=== PATIENT | female | born 1960 | race Caucasian/White ===

== ENCOUNTER 2017-11-23 13:50 | Emergency (ER) | payer MEDICARE ==
[~2017-11-23] VITALS: Ht 152.4 cm; Wt 50.8 kg
[~2017-11-23 13:50] MED LIST: AFRIN15 ML NS; ALBUTEROL PO; AZITHROMYCIN 2250 MG PO; BENTYL 10 MG CA10 M1 PO; BIAXIN 250MG T250 MG PO; CARAFATE 1 GM TA1 G1 PO; CITRATE OF MAG296 ML PO; CLEOCIN HCL150 MG PO; COMBIVENT INH; DIFLUCAN200 MG PO; DUONEB 2.5-0.5 M3 ML INH; FIBERCON625 M1 PO; FLONASE 0.05%50 MCG NASAL; HYDROCHLOROTH12.5 M1 PO; HYDROCODONE-AP1 EAC6 PO; IBUPROFEN 200200 M1 PO; IBUPROFEN 400400 M2 PO; LEVAQUIN 500 M500 M2 PO; LEVAQUIN 750 M750 MG PO; LEVOXYL88 MCG PO; LIDOCAINE 22 %/30 GM TOP; MEDROLDOSEPACK PO; MERREM1 GM IV; MIRALAX17 GM PO; MUCINEX TA600 MG/TA2 PO; NICOTINE TRANSD21 M1; NORCO 10-325 T1 EACH PO; NYSTATIN 1100000 U/M SW&SWALLOW; OMEPRAZOLE 20 M20 M1; OMEPRAZOLE 20 M20 M1 PO; OMEPRAZOLE20 M1 PO; PAXIL10 MG PO; PERCOCET 5-3251 EACH PO; PREDNISONE 10 M10 MG PO; PREDNISONE10 MG PO; PROAIR HFA8.5 GM INH; PROBIOTIC1 EAC1 PO; PROTONIX 20 MG20 MG PO; PROTONIX40 M1 PO; RANITIDINE 150150 MG PO; SINGULAIR 10 MG10 M1 PO; STERAPRED DS10 MG PO; STOOL SOFTENER100 MG PO; TOBRAMYCIN INH; TYLENOL325 MG PO; VALIUM10 MG; VALIUM10 MG PO; VALIUM5 MG PO; ZPAK PO; [UNRECOGNIZED DRUG - OTHER]
[2017-11-23] MEDS ORDERED: POLYOX WSR-3011 GM PO (13:58)
[2017-11-23] MEDS ORDERED: ZANTAC 150MG T150 MG PO (13:58)
[2017-11-23] MEDS ORDERED: CLEOCIN HCL150 MG PO (14:07)
[2017-11-23] MEDS ORDERED: PREDNISONE 20 M20 M1 PO (14:07)
[2017-11-23] MEDS ORDERED: HYCET 7.5 MG-3473 ML PO (14:07)
[2017-11-23 14:33] VITALS: BP 130/80
== END 2017-11-23 14:34 | disposition home or self-care (01) ==
LOC: M.ERS 13:50
DX: J40 Bronchitis, not specified as acute or chronic (principal); J44.9 Chronic obstructive pulmonary disease, unspecified; M19.90 Unspecified osteoarthritis, unspecified site; M81.0 Age-related osteoporosis without current pathological fracture; Z90.49 Acquired absence of other specified parts of digestive tract; Z87.891 Personal history of nicotine dependence; Z88.0 Allergy status to penicillin; Z88.5 Allergy status to narcotic agent; Z88.8 Allergy status to other drugs, medicaments and biological substances

== ENCOUNTER 2017-12-08 15:15 | Emergency (ER) | payer MEDICARE ==
[~2017-12-08] VITALS: Ht 154.9 cm; Wt 54.4 kg
[~2017-12-08 15:15] MED LIST changes: +HYCET 7.5 MG-3473 ML PO; +POLYOX WSR-3011 GM PO; +PREDNISONE 20 M20 M1 PO; +ZANTAC 150MG T150 MG PO
[2017-12-08 15:49] LABS: ABSOLUTE BASOPHILS 0.1 thou/uL (0.0-0.2); ABSOLUTE EOSINOPHILS 0.2 thou/uL (0.0-0.7); ABSOLUTE LYMPHOCYTES 2.2 thou/uL (0.8-5.3); ABSOLUTE MONOCYTES 0.6 thou/uL (0.0-1.2); ABSOLUTE NEUTROPHILS 8.8 thou/uL (1.6-8.1); BASOPHILS 0.9 %; EOSINOPHILS 1.4 %; HEMATOCRIT 39.6 % (37.0-47.0); LYMPHOCYTES 18.7 %; MCH 29.3 pg (26.0-34.0); MCHC 32.9 g/dL (28.0-37.0); MCV 89.2 fL (80.0-100.0); MONOCYTES 5.2 %; MPV 6.4 fl. (7.2-11.1); NUCLEATED RBCS 0 /100WBC; PLATELET COUNT* 275 thou/uL (150-400); POLYS 73.8 %; RBC 4.44 mil/uL (4.20-5.00); RDW-CV 14.2 % (10.5-14.5); WBC 11.9 thou/uL (4.0-11.0)
[2017-12-08 15:59] LABS: ANION GAP 8 mmol/L (7-16); BUN 12 mg/dL (7-18); CALCIUM 8.9 mg/dL (8.5-10.1); CHLORIDE 105 mmol/L (98-107); CO2 25 mmol/L (21-32); CREATININE 0.8 mg/dL (0.6-1.3); GLUCOSE 102 mg/dL (70-99); SODIUM 138 mmol/L (136-145)
[2017-12-08 16:00] LABS: PROTIME 9.6 Seconds (9.20-11.50)
[2017-12-08 16:17] LABS: ALBUMIN 3.3 g/dL (3.4-5.0); ALKALINE PHOSPHATASE 339 U/L (46-116); CK-MB MASS < 0.5 ng/mL (<0.5-3.6); LIPASE 345 U/L (73-393); MAGNESIUM 1.8 mg/dL (1.8-2.4); NT-PRO BRAIN NAT PEPTIDE 25 pg/mL (<300); SGOT 181 U/L (15-37); SGPT 123 U/L (30-65); TOTAL BILIRUBIN 0.4 mg/dL (<0.1-1.0); TOTAL PROTEIN 6.6 g/dL (6.4-8.2); TROPONIN-I LEVEL <0.06 ng/mL (<0.06)
[2017-12-08 17:08] VITALS: BP 147/81
--- NOTE | 2017-12-09 15:45 | EKG ---
[place] [address] ELECTROCARDIOGRAM REPORT Name: NAIMA FREGOSO Room: [facility]#: [id number] Admission: 12/08/17 Attend Phys: Discharge: 12/08/17 Date of : 56 Report #: [id number] THIS REPORT FOR: //name// [facility] ED Test Date: 2017-12-08 Test Time: 15:21:06 Pat Name: NAIMA FREGOSO Department: Room: Gender: F Skin Fitter: Damian ANTONIO : 1960 Requested By: Dl Puga Order Number: [id number] MD: Ash Huddleston Measurements Intervals [place] Rate: 101 P: 55 SC: 137 QRS: 44 QRSD: 97 T: -51 QT: 347 QTc: 450 Interpretive Statements Sinus tachycardia Abnormal R-wave progression, early transition Borderline T abnormalities, inferior leads Artifact in lead(s) I,II,III,aVR,aVL,aVF Compared to ECG 10/16/2017 16:09:51 T-wave abnormality now present Electronically Signed On 12-09-2017 15:45:17 MIXING PLANT OPERATOR by Ash Huddleston [email or web address] <ELECTRONICALLY SIGNED> By: Ash Huddleston MD, FACC 12/09/17 1545 1521 1521 Ash Huddleston MD, FAC /EPI
== END 2017-12-08 17:09 | disposition home or self-care (01) ==
LOC: M.ERS 15:15
PROVIDERS: Family Medicine
DX: R10.13 Epigastric pain (principal); J44.9 Chronic obstructive pulmonary disease, unspecified; M19.90 Unspecified osteoarthritis, unspecified site; E05.00 Thyrotoxicosis with diffuse goiter without thyrotoxic crisis or storm; Z87.891 Personal history of nicotine dependence; Z98.890 Other specified postprocedural states; Z88.8 Allergy status to other drugs, medicaments and biological substances; Z88.0 Allergy status to penicillin; Z88.1 Allergy status to other antibiotic agents

== ENCOUNTER 2018-01-17 11:39 | Emergency (ER) | payer MEDICARE ==
[~2018-01-17] VITALS: Ht 154.9 cm; Wt 51.3 kg
[2018-01-17] MEDS ORDERED: BONE PO (11:58)
[2018-01-17 13:39] LABS: ABSOLUTE BASOPHILS 0.1 thou/uL (0.0-0.2); ABSOLUTE EOSINOPHILS 0.1 thou/uL (0.0-0.7); ABSOLUTE LYMPHOCYTES 2.8 thou/uL (0.8-5.3); ABSOLUTE MONOCYTES 0.7 thou/uL (0.0-1.2); ABSOLUTE NEUTROPHILS 5.7 thou/uL (1.6-8.1); BASOPHILS 0.7 %; EOSINOPHILS 0.7 %; HEMATOCRIT 40.2 % (37.0-47.0); HEMOGLOBIN 13.1 gm/dL (12.0-15.0); LYMPHOCYTES 30.3 %; MCH 29.3 pg (26.0-34.0); MCHC 32.7 g/dL (28.0-37.0); MCV 89.6 fL (80.0-100.0); MONOCYTES 7.4 %; MPV 6.6 fl. (7.2-11.1); NUCLEATED RBCS 0 /100WBC; PLATELET COUNT* 282 thou/uL (150-400); POLYS 60.9 %; RBC 4.48 mil/uL (4.20-5.00); RDW-CV 13.9 % (10.5-14.5); WBC 9.4 thou/uL (4.0-11.0)
[2018-01-17 13:50] LABS: ANION GAP 5 mmol/L (7-16); BUN 8 mg/dL (7-18); CALCIUM 8.4 mg/dL (8.5-10.1); CHLORIDE 105 mmol/L (98-107); CO2 30 mmol/L (21-32); CREATININE 0.8 mg/dL (0.6-1.3); GLUCOSE 75 mg/dL (70-99); POTASSIUM 3.7 mmol/L (3.5-5.1); SODIUM 140 mmol/L (136-145)
[2018-01-17 13:58] LABS: INFLUENZA A ANTIGEN None Detected (None Detect); INFLUENZA B ANTIGEN None Detected (None Detect)
[2018-01-17 14:02] LABS: ALBUMIN 3.5 g/dL (3.4-5.0); ALKALINE PHOSPHATASE 94 U/L (46-116); NT-PRO BRAIN NAT PEPTIDE 196 pg/mL (<300); SGOT 13 U/L (15-37); SGPT 17 U/L (30-65); TOTAL BILIRUBIN 0.2 mg/dL (<0.1-1.0); TOTAL PROTEIN 6.6 g/dL (6.4-8.2); TROPONIN-I LEVEL <0.06 ng/mL (<0.06)
[2018-01-17] MEDS ORDERED: PREDNISONE 20 M20 M1 PO (15:02)
[2018-01-17] MEDS ORDERED: LEVAQUIN 500 M500 MG PO (15:02)
[2018-01-17 15:43] VITALS: BP 140/83
--- NOTE | 2018-01-17 17:09 | EKG ---
[place] [address] ELECTROCARDIOGRAM REPORT Name: NAIMA FREGOSO Room: [facility]#: [id number] Admission: 01/17/18 Attend Phys: Discharge: 01/17/18 Date of : 56 Report #: [id number] THIS REPORT FOR: //name// [facility] ED Test Date: 2018-01-17 Test Time: 13:35:36 Pat Name: NAIMA FREGOSO Department: Room: Gender: F Conveyor Tender: Damian DAVIDSON : 1960 Requested By: Sofía Bales Order Number: [id number] MD: Ash Huddleston Measurements Intervals [place] Rate: 70 P: 52 MD: 133 QRS: 14 QRSD: 92 T: 20 QT: 384 QTc: 415 Interpretive Statements Sinus rhythm Low voltage, precordial leads Compared to ECG 12/08/2017 15:21:06 Low QRS voltage now present Sinus tachycardia no longer present T-wave abnormality no longer present Electronically Signed On 01-17-2018 17:09:34 INSTRUCTOR BUS TROLLEY [employer]AXI by Ash Huddleston [email or web address] <ELECTRONICALLY SIGNED> By: Ash Huddleston MD, [facility] 01/17/18 1709 1335 1335 Ash Huddleston MD, [facility] /EPI
== END 2018-01-17 15:44 | disposition home or self-care (01) ==
LOC: M.ERS 11:39
PROVIDERS: Nurse Practitioner Family
DX: J18.9 Pneumonia, unspecified organism (principal); J44.9 Chronic obstructive pulmonary disease, unspecified; E05.00 Thyrotoxicosis with diffuse goiter without thyrotoxic crisis or storm; M81.0 Age-related osteoporosis without current pathological fracture; Z90.49 Acquired absence of other specified parts of digestive tract; Z88.8 Allergy status to other drugs, medicaments and biological substances; Z88.1 Allergy status to other antibiotic agents; Z88.0 Allergy status to penicillin; Z87.891 Personal history of nicotine dependence

== ENCOUNTER 2018-02-04 18:17 | Emergency (ER) | payer MEDICARE ==
[~2018-02-04] VITALS: Ht 152.4 cm; Wt 51.3 kg
[~2018-02-04 18:17] MED LIST changes: +BONE PO; +LEVAQUIN 500 M500 MG PO
[2018-02-04] MEDS ORDERED: FOSAMAX 70 MG T70 MG PO (18:31)
[2018-02-04 19:15] LABS: ABSOLUTE BASOPHILS 0.1 thou/uL (0.0-0.2); ABSOLUTE EOSINOPHILS 0.3 thou/uL (0.0-0.7); ABSOLUTE LYMPHOCYTES 2.3 thou/uL (0.8-5.3); ABSOLUTE MONOCYTES 0.4 thou/uL (0.0-1.2); ABSOLUTE NEUTROPHILS 3.9 thou/uL (1.6-8.1); EOSINOPHILS 4.4 %; HEMATOCRIT 37.3 % (37.0-47.0); HEMOGLOBIN 12.2 gm/dL (12.0-15.0); LYMPHOCYTES 33.2 %; MCHC 32.7 g/dL (28.0-37.0); MCV 88.7 fL (80.0-100.0); MONOCYTES 5.7 %; MPV 6.3 fl. (7.2-11.1); NUCLEATED RBCS 0 /100WBC; PLATELET COUNT* 233 thou/uL (150-400); POLYS 55.7 %; RBC 4.21 mil/uL (4.20-5.00); RDW-CV 13.6 % (10.5-14.5)
[2018-02-04 19:23] LABS: CALCIUM 8.2 mg/dL (8.5-10.1); CREATININE 0.8 mg/dL (0.6-1.3); POTASSIUM 3.8 mmol/L (3.5-5.1)
[2018-02-04 19:28] LABS: TOTAL BILIRUBIN 0.2 mg/dL (<0.1-1.0); TOTAL PROTEIN 6.1 g/dL (6.4-8.2)
[2018-02-04] MEDS ORDERED: PREDNISONE 20 M20 M1 PO (19:51)
[2018-02-04] MEDS ORDERED: TUSSIN MUC100 MG/5 M PO (19:52)
[2018-02-04 20:03] VITALS: BP 138/79
== END 2018-02-04 20:11 | disposition home or self-care (01) ==
LOC: M.ERS 18:17
PROVIDERS: Nurse Practitioner Family
DX: J06.9 Acute upper respiratory infection, unspecified (principal); J44.9 Chronic obstructive pulmonary disease, unspecified; M19.90 Unspecified osteoarthritis, unspecified site

== ENCOUNTER 2018-02-27 14:16 | Emergency (ER) | payer MEDICARE ==
[~2018-02-27] VITALS: Ht 154.9 cm; Wt 52.2 kg
[~2018-02-27 14:16] MED LIST changes: +FOSAMAX 70 MG T70 MG PO; +TUSSIN MUC100 MG/5 M PO
[2018-02-27] MEDS ORDERED: BREO ELLIPTA 11 EACH INH (14:27)
[2018-02-27 15:15] LABS: ABSOLUTE BASOPHILS 0.1 thou/uL (0.0-0.2); ABSOLUTE EOSINOPHILS 0.3 thou/uL (0.0-0.7); ABSOLUTE LYMPHOCYTES 1.8 thou/uL (0.8-5.3); ABSOLUTE MONOCYTES 0.5 thou/uL (0.0-1.2); BASOPHILS 1.3 %; HEMATOCRIT 38.2 % (37.0-47.0); HEMOGLOBIN 12.6 gm/dL (12.0-15.0); LYMPHOCYTES 27.4 %; MCH 28.6 pg (26.0-34.0); MCHC 33.1 g/dL (28.0-37.0); MCV 86.6 fL (80.0-100.0); MPV 6.3 fl. (7.2-11.1); NUCLEATED RBCS 0 /100WBC; PLATELET COUNT* 282 thou/uL (150-400); POLYS 59.3 %; RBC 4.41 mil/uL (4.20-5.00); RDW-CV 13.4 % (10.5-14.5); WBC 6.7 thou/uL (4.0-11.0)
[2018-02-27 15:23] LABS: ANION GAP 6 mmol/L (7-16); BUN 17 mg/dL (7-18); CALCIUM 9.4 mg/dL (8.5-10.1); CHLORIDE 105 mmol/L (98-107); CO2 29 mmol/L (21-32); CREATININE 0.8 mg/dL (0.6-1.3); GLUCOSE 108 mg/dL (70-99); POTASSIUM 4.6 mmol/L (3.5-5.1); SODIUM 140 mmol/L (136-145)
[2018-02-27 15:30] LABS: ALBUMIN 3.2 g/dL (3.4-5.0); ALKALINE PHOSPHATASE 98 U/L (46-116); SGOT 18 U/L (15-37); SGPT 19 U/L (30-65); TOTAL BILIRUBIN 0.2 mg/dL (<0.1-1.0); TOTAL PROTEIN 6.9 g/dL (6.4-8.2); TROPONIN-I LEVEL <0.06 ng/mL (<0.06)
[2018-02-27 17:10] VITALS: BP 125/74
--- NOTE | 2018-02-28 10:06 | EKG ---
[place] [address] ELECTROCARDIOGRAM REPORT Name: NAIMA FREGOSO Room: [facility]#: [id number] Admission: 02/27/18 Attend Phys: Discharge: 02/27/18 Date of : 56 Report #: [id number] THIS REPORT FOR: //name// [facility] ED Test Date: 2018-02-27 Test Time: 15:20:10 Pat Name: NAIMA FREGOSO Department: Room: Gender: F Shirt Line Operator: ANDRE : 1960 Requested By: Jayce Kee Order Number: [id number] MD: Juan Montano Measurements Intervals [place] Rate: 86 P: 53 IL: 138 QRS: 31 QRSD: 93 T: 41 QT: 358 QTc: 429 Interpretive Statements Sinus rhythm Compared to ECG 01/17/2018 13:35:36 No significant changes Electronically Signed On 02-28-2018 10:05:43 CDT by Juan Montano [email or web address] <ELECTRONICALLY SIGNED> By: Juan Montano MD, [facility] 02/28/18 1005 1520 1520 Juan Montano MD, FACC /EPI
== END 2018-02-27 17:10 | disposition home or self-care (01) ==
LOC: M.ERS 14:16
PROVIDERS: Emergency Medicine Emergency Medical Services
DX: H53.8 Other visual disturbances (principal); J44.9 Chronic obstructive pulmonary disease, unspecified; M19.90 Unspecified osteoarthritis, unspecified site; E05.00 Thyrotoxicosis with diffuse goiter without thyrotoxic crisis or storm; M81.0 Age-related osteoporosis without current pathological fracture; Z88.4 Allergy status to anesthetic agent; Z88.8 Allergy status to other drugs, medicaments and biological substances; Z88.0 Allergy status to penicillin; Z88.1 Allergy status to other antibiotic agents; Z87.891 Personal history of nicotine dependence

== ENCOUNTER 2018-04-25 18:12 | Emergency (ER) | payer MEDICARE ==
[~2018-04-25] VITALS: Ht 152.4 cm; Wt 47.6 kg
[~2018-04-25 18:12] MED LIST changes: +BREO ELLIPTA 11 EACH INH
[2018-04-25] MEDS ORDERED: EYE DROPS (18:23)
[2018-04-25 18:50] LABS: HEMATOCRIT 39.2 % (37.0-47.0); HEMOGLOBIN 13.1 gm/dL (12.0-15.0); MCH 28.7 pg (26.0-34.0); MCHC 33.4 g/dL (28.0-37.0); MPV 6.8 fl. (7.2-11.1); NUCLEATED RBCS 0 /100WBC; PLATELET COUNT* 246 thou/uL (150-400); RBC 4.56 mil/uL (4.20-5.00); RDW-CV 15.2 % (10.5-14.5); WBC 5.6 thou/uL (4.0-11.0)
[2018-04-25 18:58] LABS: CALCIUM 8.9 mg/dL (8.5-10.1); CREATININE 0.8 mg/dL (0.6-1.3); POTASSIUM 3.9 mmol/L (3.5-5.1)
[2018-04-25 19:02] LABS: ALBUMIN 3.5 g/dL (3.4-5.0); TOTAL BILIRUBIN 0.2 mg/dL (<0.1-1.0); TOTAL PROTEIN 6.6 g/dL (6.4-8.2)
[2018-04-25 19:08] LABS: ABSOLUTE LYMPHOCYTES 0.4 thou/uL (0.8-5.3); ABSOLUTE MONOCYTES 0.1 thou/uL (0.0-1.2); ABSOLUTE NEUTROPHILS 5.1 thou/uL (1.6-8.1); ATYPICAL LYMPHS 1 %; PLATELET ESTIMATE ADEQUATE
[2018-04-25] MEDS ORDERED: PREDNISONE50 MG PO (19:33)
[2018-04-25 19:45] VITALS: BP 136/77
--- NOTE | 2018-04-26 13:57 | EKG ---
[place] [address] ELECTROCARDIOGRAM REPORT Name: NAIMA FREGOSO Room: [facility]#: [id number] Admission: 04/25/18 Attend Phys: Discharge: 04/25/18 Date of : 56 Report #: [id number] THIS REPORT FOR: //name// [facility] ED Test Date: 2018-04-25 Test Time: 18:36:32 Pat Name: NAIMA FREGOSO Department: Room: Gender: F Research Study Assistant: EDEN : 1960 Requested By: Saud Nunes Order Number: [id number] MD: Ash Huddleston Measurements Intervals [place] Rate: 94 P: 59 DE: 128 QRS: 20 QRSD: 104 T: 35 QT: 373 QTc: 467 Interpretive Statements Sinus rhythm Compared to ECG 02/27/2018 15:20:10 No significant changes Electronically Signed On 04-26-2018 13:57:38 CDT by Ash Huddleston [email or web address] <ELECTRONICALLY SIGNED> By: Ash Huddleston MD, [facility] 04/26/18 1357 35 35 Ash Huddleston MD, FACC /EPI
== END 2018-04-25 19:49 | disposition home or self-care (01) ==
LOC: M.ERS 18:12
PROVIDERS: Nurse Practitioner Family
DX: J44.1 Chronic obstructive pulmonary disease with (acute) exacerbation (principal); M19.90 Unspecified osteoarthritis, unspecified site; E05.00 Thyrotoxicosis with diffuse goiter without thyrotoxic crisis or storm; M81.0 Age-related osteoporosis without current pathological fracture; Z88.4 Allergy status to anesthetic agent; Z88.0 Allergy status to penicillin; Z88.8 Allergy status to other drugs, medicaments and biological substances; Z87.891 Personal history of nicotine dependence

== ENCOUNTER 2018-06-10 13:20 | Emergency (ER) | payer MEDICARE ==
[~2018-06-10] VITALS: Ht 152.4 cm; Wt 47.6 kg
[~2018-06-10 13:20] MED LIST changes: +EYE DROPS; +PREDNISONE50 MG PO
[2018-06-10 14:31] LABS: URINE BILIRUBIN NEGATIVE (Negative); URINE BLOOD NEGATIVE (Negative); URINE CLARITY CLEAR; URINE COLOR YELLOW; URINE GLUCOSE-RANDOM NEGATIVE (Negative); URINE KETONES NEGATIVE (Negative); URINE LEUKOCYTES-REFLEX NEGATIVE (Negative); URINE NITRITE-REFLEX NEGATIVE (Negative); URINE PROTEIN NEGATIVE (Negative); URINE UROBILINOGEN 0.2 E.U./dl (0.2-1.0)
[2018-06-10] MEDS ORDERED: CLEOCIN HCL150 MG PO (15:23)
[2018-06-10] MEDS ORDERED: PREDNISONE 10 M10 MG PO (15:23)
[2018-06-10 15:29] VITALS: BP 117/76
--- NOTE | 2018-06-11 12:40 | EKG ---
[place] [address] ELECTROCARDIOGRAM REPORT Name: NAIMA FREGOSO Room: [facility]#: [id number] Admission: 06/10/18 Attend Phys: Discharge: 06/10/18 Date of : 56 Report #: [id number] THIS REPORT FOR: //name// [facility] ED Test Date: 2018-06-10 Test Time: 14:32:47 Pat Name: NAIMA FREGOSO Department: Room: Gender: F Pigment Grinder: Damian ANTONIO : 1960 Requested By: Daja Baker Order Number: [id number] Jeannie MD: Tigre Faith Measurements Intervals [place] Rate: 72 P: 55 OR: 129 QRS: 20 QRSD: 100 T: 30 QT: 388 QTc: 425 Interpretive Statements Sinus rhythm Compared to ECG 04/25/2018 18:36:32 No significant changes Electronically Signed On 06-11-2018 12:40:27 CDT by Tigre Faith [email or web address] <ELECTRONICALLY SIGNED> By: Tigre Faith MD, [facility] 06/11/18 1240 1432 1432 Tigre Faith MD, FAC /EPI
== END 2018-06-10 15:30 | disposition home or self-care (01) ==
LOC: M.ERS 13:20
PROVIDERS: Physician Assistant
DX: J44.1 Chronic obstructive pulmonary disease with (acute) exacerbation (principal); M19.90 Unspecified osteoarthritis, unspecified site; M81.0 Age-related osteoporosis without current pathological fracture; Z87.891 Personal history of nicotine dependence; Z88.0 Allergy status to penicillin; Z88.8 Allergy status to other drugs, medicaments and biological substances

== ENCOUNTER 2018-06-29 16:18 | Emergency (ER) | payer MEDICARE ==
[~2018-06-29] VITALS: Ht 152.4 cm; Wt 47.6 kg
[2018-06-29] MEDS ORDERED: PROMETH-CODEIN 65 ML PO (16:50)
[2018-06-29] MEDS ORDERED: ZPAK PO (16:50)
[2018-06-29] MEDS ORDERED: PREDNISONE 20 M20 M1 PO (16:50)
[2018-06-29 17:27] VITALS: BP 105/61
== END 2018-06-29 17:28 | disposition home or self-care (01) ==
LOC: M.ERS 16:18
DX: J44.1 Chronic obstructive pulmonary disease with (acute) exacerbation (principal); J40 Bronchitis, not specified as acute or chronic; M81.0 Age-related osteoporosis without current pathological fracture; M19.90 Unspecified osteoarthritis, unspecified site; Z87.891 Personal history of nicotine dependence; Z88.0 Allergy status to penicillin; Z88.8 Allergy status to other drugs, medicaments and biological substances; Z90.49 Acquired absence of other specified parts of digestive tract

== ENCOUNTER 2018-11-24 16:08 | Emergency (ER) | payer MEDICARE ==
[~2018-11-24] VITALS: Ht 152.4 cm; Wt 52.2 kg
[~2018-11-24 16:08] MED LIST changes: +PROMETH-CODEIN 65 ML PO
[2018-11-24] MEDS ORDERED: ZOFRAN ODT4 MG PO (16:24)
[2018-11-24 16:52] LABS: ABSOLUTE BASOPHILS 0.1 thou/uL (0.0-0.2); ABSOLUTE EOSINOPHILS 0.3 thou/uL (0.0-0.7); ABSOLUTE MONOCYTES 0.5 thou/uL (0.0-1.2); BASOPHILS 1.5 %; EOSINOPHILS 4.3 %; HEMATOCRIT 38.8 % (37.0-47.0); HEMOGLOBIN 12.9 gm/dL (12.0-15.0); MCH 29.6 pg (26.0-34.0); MCHC 33.2 g/dL (28.0-37.0); MCV 89.2 fL (80.0-100.0); MPV 6.3 fl. (7.2-11.1); NUCLEATED RBCS 0 /100WBC; PLATELET COUNT* 251 thou/uL (150-400); POLYS 58.2 %; RBC 4.35 mil/uL (4.20-5.00); RDW-CV 13.5 % (10.5-14.5); WBC 6.9 thou/uL (4.0-11.0)
[2018-11-24 17:01] LABS: ANION GAP 6 mmol/L (7-16); BUN 7 mg/dL (7-18); CALCIUM 8.3 mg/dL (8.5-10.1); CHLORIDE 102 mmol/L (98-107); CO2 30 mmol/L (21-32); GLUCOSE 90 mg/dL (70-99); POTASSIUM 3.9 mmol/L (3.5-5.1); SODIUM 138 mmol/L (136-145)
[2018-11-24 17:12] LABS: ALBUMIN 3.2 g/dL (3.4-5.0); ALKALINE PHOSPHATASE 79 U/L (46-116); SGOT 18 U/L (15-37); SGPT 18 U/L (30-65); TOTAL BILIRUBIN 0.2 mg/dL (<0.1-1.0); TOTAL PROTEIN 6.1 g/dL (6.4-8.2); TROPONIN-I LEVEL <0.06 ng/mL (<0.06)
[2018-11-24 18:13] LABS: URINE BILIRUBIN NEGATIVE (Negative); URINE BLOOD NEGATIVE (Negative); URINE CLARITY CLEAR; URINE COLOR STRAW; URINE GLUCOSE-RANDOM NEGATIVE (Negative); URINE KETONES NEGATIVE (Negative); URINE LEUKOCYTES-REFLEX NEGATIVE (Negative); URINE NITRITE-REFLEX NEGATIVE (Negative); URINE PROTEIN NEGATIVE (Negative); URINE UROBILINOGEN 0.2 E.U./dl (0.2-1.0)
[2018-11-24] MEDS ORDERED: PREDNISONE 10 M10 MG PO (18:25)
[2018-11-24] MEDS ORDERED: CEFUROXIME500 MG PO (18:25)
[2018-11-24 18:35] VITALS: BP 128/72
--- NOTE | 2018-11-25 13:44 | EKG ---
[place] [address] ELECTROCARDIOGRAM REPORT Name: NAIMA FREGOSO Ugo Room: [facility]#: [id number] Admission: 11/24/18 Attend Phys: Discharge: 11/24/18 Date of : 56 Report #: [id number] THIS REPORT FOR: //name// [facility] ED Test Date: 2018-11-24 Test Time: 17:09:12 Pat Name: NAIMA FREGOSO Department: Room: Gender: F Fingernail Former: Damian ANTONIO : 1960 Requested By: Sofía Bales Order Number: [id number] MD: Juan Montano Measurements Intervals [place] Rate: 82 P: 61 IL: 142 QRS: 42 QRSD: 95 T: 44 QT: 378 QTc: 442 Interpretive Statements Sinus rhythm Baseline wander in lead(s) V6 Compared to ECG 06/10/2018 14:32:47 No significant changes Electronically Signed On 11-25-2018 13:44:02 UTILIZATION MANAGER by Juan Montano [email or web address] <ELECTRONICALLY SIGNED> By: Juan Montano MD, [facility] 11/25/18 1344 1709 1709 Juan Montano MD, [facility] /EPI
== END 2018-11-24 18:36 | disposition home or self-care (01) ==
LOC: M.ERS 16:08
PROVIDERS: Nurse Practitioner Family
DX: J44.1 Chronic obstructive pulmonary disease with (acute) exacerbation (principal); M81.0 Age-related osteoporosis without current pathological fracture; M19.90 Unspecified osteoarthritis, unspecified site; Z87.891 Personal history of nicotine dependence; Z88.0 Allergy status to penicillin; Z88.8 Allergy status to other drugs, medicaments and biological substances; Z90.49 Acquired absence of other specified parts of digestive tract

== ENCOUNTER 2019-03-25 11:29 | Inpatient (IN) | payer MEDICARE ==
[~2019-03-25] VITALS: Ht 152.4 cm; Wt 51.7 kg
[~2019-03-25 11:29] MED LIST changes: +CEFUROXIME500 MG PO; +ZOFRAN ODT4 MG PO
[2019-03-25 11:38] VITALS: BP 159/81
[2019-03-25] MEDS ORDERED: DOXYCYCLINE 10100 MG PO (11:41)
[2019-03-25] MEDS ORDERED: PREDNISONE 10 M10 MG PO (11:41)
[2019-03-25 11:59] LABS: PCO2 34.2 mmHg (35.0-45.0); pH 7.467 (7.340-7.450)
[2019-03-25 12:16] LABS: URINE BILIRUBIN NEGATIVE (Negative); URINE BLOOD NEGATIVE (Negative); URINE CLARITY CLEAR; URINE COLOR STRAW; URINE GLUCOSE-RANDOM NEGATIVE (Negative); URINE KETONES NEGATIVE (Negative); URINE LEUKOCYTES-REFLEX NEGATIVE (Negative); URINE NITRITE-REFLEX NEGATIVE (Negative); URINE PROTEIN NEGATIVE (Negative); URINE UROBILINOGEN 0.2 E.U./dl (0.2-1.0)
[2019-03-25 12:21] LABS: ABSOLUTE BASOPHILS 0.1 thou/uL (0.0-0.2); ABSOLUTE EOSINOPHILS 0.1 thou/uL (0.0-0.7); ABSOLUTE LYMPHOCYTES 3.3 thou/uL (0.8-5.3); ABSOLUTE MONOCYTES 0.9 thou/uL (0.0-1.2); BASOPHILS 1.1 %; EOSINOPHILS 1.1 %; HEMATOCRIT 42.6 % (37.0-47.0); HEMOGLOBIN 14.3 gm/dL (12.0-15.0); LYMPHOCYTES 26.3 %; MCH 30.1 pg (26.0-34.0); MCHC 33.5 g/dL (28.0-37.0); MCV 89.8 fL (80.0-100.0); MONOCYTES 7.2 %; MPV 6.3 fl. (7.2-11.1); NUCLEATED RBCS 0 /100WBC; PLATELET COUNT* 302 thou/uL (150-400); POLYS 64.3 %; RBC 4.74 mil/uL (4.20-5.00); RDW-CV 14.2 % (10.5-14.5); WBC 12.5 thou/uL (4.0-11.0)
[2019-03-25 12:34] LABS: CREATININE 0.8 mg/dL (0.6-1.3); INR 0.9; POTASSIUM 3.8 mmol/L (3.5-5.1); PROTIME 9.7 Seconds (9.20-11.50)
[2019-03-25 12:38] LABS: ALBUMIN 3.6 g/dL (3.4-5.0); TOTAL BILIRUBIN 0.2 mg/dL (<0.1-1.0); TOTAL PROTEIN 6.9 g/dL (6.4-8.2)
[2019-03-25 13:17] LABS: INFLUENZA A ANTIGEN None Detected (None Detect); INFLUENZA B ANTIGEN None Detected (None Detect)
[2019-03-25 14:05] LABS: AMP/METHAMP Negative (Negative); BARBITURATES Negative (Negative); BENZODIAZEPINES Negative (Negative); COCAINE Negative (Negative); METHADONE Negative (Negative); OPIATES Negative (Negative); PCP Negative (Negative); THC Negative (Negative)
[2019-03-25 15:00] VITALS: BP 148/76
[2019-03-25 15:13] VITALS: BP 122/64
--- NOTE | 2019-03-25 17:10 | NUR ---
pt admitted to room 203 via bed from ER. she was accompanied by nursing staff and her significant other.oriented to room and use of call light to help with cares. pt up ad haydee in room, and is able to make needs known. assessment complete. pt came up with on room air with SPO2 of 96%. iv abt infusing as ordered, no s/s of adverse reactions noted. will cont to monitor.
[2019-03-25 20:00] VITALS: BP 128/77
[2019-03-26] VITALS: BP 147/85
[2019-03-26 04:00] VITALS: BP 125/75
[2019-03-26 05:11] LABS: HEMATOCRIT 41.4 % (37.0-47.0); HEMOGLOBIN 13.8 gm/dL (12.0-15.0); MCH 29.7 pg (26.0-34.0); MCHC 33.3 g/dL (28.0-37.0); MCV 89.4 fL (80.0-100.0); MPV 6.4 fl. (7.2-11.1); NUCLEATED RBCS 0 /100WBC; PLATELET COUNT* 330 thou/uL (150-400); RBC 4.62 mil/uL (4.20-5.00); RDW-CV 14.2 % (10.5-14.5); WBC 8.7 thou/uL (4.0-11.0)
[2019-03-26 05:20] LABS: CALCIUM 8.7 mg/dL (8.5-10.1); CREATININE 0.9 mg/dL (0.6-1.3); POTASSIUM 3.7 mmol/L (3.5-5.1)
--- NOTE | 2019-03-26 05:31 | NUR ---
ASSUMED CARE OF PT AFTER REPORT AT 1930. PT A&OX4. VSS. PHYSICAL ASSESSMENT COMPLETED AND CHARTED. PT ON RA. PT TRACING SR/ST ON TELE. PT UPADLIB TO RESTROOM. PT DENIES NAY PAIN OR SOA. MEDS GIVEN PER MAR. FAMILY AT BEDSIDE. HOURLY ROUNDING OBSERVED. CALL LIGHT WITHIN REACH.
[2019-03-26 06:41] LABS: ABSOLUTE NEUTROPHILS 7.7 thou/uL (1.6-8.1)
[2019-03-26 06:42] LABS: PLATELET ESTIMATE ADEQUATE
[2019-03-26 12:15] VITALS: BP 132/69
--- NOTE | 2019-03-26 13:41 | EKG ---
[place] [address] ELECTROCARDIOGRAM REPORT Name: NAIMA FREGOSO Room: [address] ADM IN [facility]#: [id number] Admission: 03/25/19 Attend Phys: Jack Elizondo MD Discharge: Date of : 56 Report #: [id number] THIS REPORT FOR: //name// [facility] ED Test Date: 2019-03-25 Test Time: 11:58:03 Pat Name: NAIMA FREGOSO Department: Room: [facility] Gender: F Tax Compliance Manager: CHANTEL : 1960 Requested By: Skyla Concepcion Order Number: [id number] MD: Juan Montano Measurements Intervals [place] Rate: 83 P: 73 OR: 127 QRS: 25 QRSD: 99 T: 37 QT: 361 QTc: 425 Interpretive Statements Sinus rhythm Borderline T abnormalities, anterior leads Compared to ECG 11/24/2018 17:09:12 T-wave abnormality now present Electronically Signed On 03-26-2019 13:41:24 CDT by Juan Montano [email or web address] <ELECTRONICALLY SIGNED> By: Juan Montano MD, [facility] 03/26/19 1341 1158 1158 Juan Montano MD, [facility] /EPI
[2019-03-26 15:49] VITALS: BP 132/72
--- NOTE | 2019-03-26 17:33 | NUR ---
I ASSUMED CARE OF THE PATIENT AT 0700. SHE IS ALERT AND ORIENTED X4 AND IS UP AD CINDY. BED IS IN THE LOW LOCKED POSITION AND CALL LIGHT IS IN REACH. HOURLY ROUNDING IS COMPLETED AND PAITENT NEEDS ARE MET. PAIN IS DENIED. SPUTUM CULTURE WAS SENT. IV INFILTRATED AND WILL BE REPLACED. BOYFRIENMatthew IS IN THE PATIENT'S BED AT HER REQUEST. WHEN HE STEPPED OUT, SHE CONFIRMED THAT SHE WANTS HIM IN BED WITH HER AND THAT SHE FEELS SAFE. WILL CONTINUE TO MONITOR.
[2019-03-26 20:00] VITALS: BP 138/70
[2019-03-27] VITALS: BP 118/68
[2019-03-27 04:00] VITALS: BP 138/73
--- NOTE | 2019-03-27 05:09 | NUR ---
ASSUMED CARE OF PT AFTER REPORT AT 1930. PT A&OX4. VSS. PHYSICAL ASSESSMENT COMPLETED AND CHARTED. PT ON RA. VSS. PT TRACING ST ON TELE. PT UP ADLIB TO RESTROOM. PT DENIES ANY PAIN OR SOA. FAMILY AT BEDSIDE. HOURLY ROUNDING OBSERVED. CALL LIGHT WITHIN REACH.
[2019-03-27 07:55] VITALS: BP 138/78
--- NOTE | 2019-03-27 09:35 | NUR ---
PT ALERT AND ORIENTED. TELE TRACKING SINUS TACH (110'S) AND ALL VSS ON ROOM AIR. DENIES CP. STILL C/O LABORED BREATHING AND SWENSON, BUT STATES IT IS IMPROVING COUGH BECOMES MORE PRODUCTIVE. NO REACTION/REDNESS TO ROCEPHIN THIS AM. EDUCATED ON SAFETY AND PLAN OF CARE. PLEASE SEE ASSESSMENT FOR ADDITIONAL INFORMATION. WILL CONTINUE TO MONITOR.
[2019-03-27 12:10] VITALS: BP 122/66
--- NOTE | 2019-03-27 14:10 | NUR ---
Pt is A&O. Resides at home with her fiance. Independent. Pt has a neb at home. Hx of HH. Hx of skilled at [facility]. Goal is home at ut. Per Pt, plan is for Pt to have pulm rehab at ut. Following.
[2019-03-27 17:21] VITALS: BP 130/70
[2019-03-27 20:00] VITALS: BP 136/69
[2019-03-28] VITALS (7 sets, daily range): BP systolic 122–149; BP diastolic 71–84
[2019-03-28 05:27] LABS: ABSOLUTE LYMPHOCYTES 0.7 thou/uL (0.8-5.3); ABSOLUTE MONOCYTES 0.2 thou/uL (0.0-1.2); ABSOLUTE NEUTROPHILS 10.1 thou/uL (1.6-8.1); BASOPHILS 0.1 %; HEMATOCRIT 39.8 % (37.0-47.0); LYMPHOCYTES 6.4 %; MCH 29.3 pg (26.0-34.0); MCHC 32.8 g/dL (28.0-37.0); MCV 89.3 fL (80.0-100.0); MONOCYTES 2.2 %; MPV 6.4 fl. (7.2-11.1); NUCLEATED RBCS 0 /100WBC; PLATELET COUNT* 328 thou/uL (150-400); POLYS 91.3 %; RBC 4.45 mil/uL (4.20-5.00); RDW-CV 14.6 % (10.5-14.5); WBC 11.1 thou/uL (4.0-11.0)
[2019-03-28 05:38] LABS: CALCIUM 8.3 mg/dL (8.5-10.1); CREATININE 0.9 mg/dL (0.6-1.3); POTASSIUM 4.1 mmol/L (3.5-5.1); TOTAL BILIRUBIN 0.3 mg/dL (<0.1-1.0); TOTAL PROTEIN 5.8 g/dL (6.4-8.2)
--- NOTE | 2019-03-28 06:48 | NUR ---
ASSUMED CARE OF PT AFTER REPORT AT 1930. PT A&OX4. VSS. PHYSICAL ASSESSMENT COMPLETED AND CHARTED. PT ON RA. PT TRACING SR/ST ON TELE. PT UPADLIB TO RESTROOM. PT DENIES ANY PAIN OR SOA OVERNIGHT. CALL LIGHT WITHIN REACH.
--- NOTE | 2019-03-28 10:30 | NUR ---
INITAL ASSESSMENT COMPLETED CHARTED. TRACING SR ON MONITOR. VSS. PT REMAINS ON RA. PT DENIES PAIN. PT DENIES ANY FURTHER NEEDS AT THIS TIME. HOURLY ROUNDING IN PLACE FOR SAFETY. CLWR.
--- NOTE | 2019-03-28 16:41 | 2DMMODE ---
[place] [address] 2 D/M-MODE ECHOCARDIOGRAM Name: NAIMA FREGOSO Room: [address] IN [facility]#: [id number] Admission: 03/25/19 Attend Phys: Jack Elizondo, Discharge: Date of : 56 Date of Service: 03/28/19 1641 Report #: [id number] THIS REPORT FOR: //name// APPROVED REPORT Study performed: 03/28/2019 10:54:23 EXAM: Comprehensive 2D, Doppler, and color-flow Echocardiogram Patient Location: In-Patient Room #: [facility] Status: routine BSA: 1.47 HR: 93 bpm BP: 142/71 mmHg Rhythm: NSR Other Information Study Quality: Good Indications COPD Dyspnea 2D Dimensions IVSd: 8.87 (7-11mm) LVOT Diam: 17.78 (18-24mm) LVDd: 42.99 mm PWd: 9.15 (7-11mm) Ascending Ao: 31.08 (22-36mm) LVDs: 21.02 (25-40mm) Aortic Root: 25.59 mm Volumes Left Atrial Volume (Systole) LA ESV Index: 22.50 mL/m2 Aortic Valve AoV Peak Nicanor.: 1.47 m/s AO Peak Gr.: 8.68 mmHg LVOT Max P.82 mmHg AO Mean Gr.: 4.41 mmHg LVOT Mean P.88 mmHg LVOT Max V: 1.31 m/s AO V2 VTI: 23.40 cm LVOT Mean V: 0.76 m/s CATHIE (VTI): 2.50 cm2 LVOT V1 VTI: 23.52 cm Mitral Valve E/A Ratio: 1.02 MV Decel. Time: 248.63 [place] [address] 2 D/M-MODE ECHOCARDIOGRAM Name: NAIMA FREGOSO Room: [address] [place] [facility]#: [id number] Admission: 03/25/19 Attend Phys: Jack Elizondo, Discharge: Date of : 56 Date of Service: 03/28/19 1641 Report #: [id number] MV E Max Nicanor.: 0.77 m/s MV PHT: 72.10 ms MVA (PHT): 3.05 cm2 TDI E/Lateral E': 4.81 E/Medial E': 7.00 Medial E' Nicanor.: 0.11 m/s Lateral E' Nicanor.: 0.16 m/s Pulmonary Valve PV Peak Nicanor.: 1.45 m/s PV Peak Gr.: 8.36 mmHg Left Ventricle The left ventricle is normal size. There is normal LV segmental wall motion. There is normal left ventricular wall thickness. Left ventricular systolic function is normal. LVEF is 60-65%. Transmitral Doppler flow pattern suggests impaired LV relaxation. Right Ventricle The right ventricle is normal size. The right ventricular systolic function is normal. Atria The left atrium size is normal. The right atrium size is normal. Aortic Valve The aortic valve is normal in structure. No aortic regurgitation is present. There is no aortic valvular stenosis. Mitral Valve The mitral valve is normal in structure. Trace mitral regurgitation. No evidence of mitral valve stenosis. Tricuspid Valve The tricuspid valve is normal in structure. Trace tricuspid regurgitation. Pulmonic Valve The pulmonary valve is normal in structure. There is no pulmonic valvular regurgitation. Great Vessels The aortic root is normal in size. IVC is normal in size and collapses >50% [place] [address] 2 D/M-MODE ECHOCARDIOGRAM Name: NAIMA FREGOSO Room: [address] [place] [facility]#: [id number] Admission: 03/25/19 Attend Phys: Jack Elizondo, Discharge: Date of : 56 Date of Service: 03/28/19 1641 Report #: [id number] Pericardium There is no pericardial effusion. <Conclusion> The left ventricle is normal size. There is normal left ventricular wall thickness. The left ventricle is normal size. There is normal left ventricular wall thickness. Left ventricular systolic function is normal. LVEF is 60-65%. Transmitral Doppler flow pattern suggests impaired LV relaxation. Trace mitral regurgitation. Trace tricuspid regurgitation. IVC is normal in size and collapses >50% with inspiration. <ELECTRONICALLY SIGNED> By: Johnathon Red MD, FACC 03/28/19 164 164 40 Johnathon Red MD, FACC /INF
[2019-03-29 04:00] VITALS: BP 124/80
[2019-03-29 07:15] VITALS: BP 120/75
--- NOTE | 2019-03-29 07:51 | NUR ---
PT ALERT AND ORIENTED X4. VITALS STABLE. 02 SATS >92% IN RA. SLEPT WELL AT NIGHT. PROVIDED MIRALAX AT NIGHT FOR CONSTIPATION. PROGRESSING TOWARDS GOAL.
--- NOTE | 2019-03-29 08:01 | NUR ---
INITAL ASSESSMENT COMPLETED CHARTED.TRACING ST ON MONITOR. PT C/O BURNING AND DRYNESS IN THROAT, OTHERWISE DENIES PAIN. SOA WITH EXERTION. HOURLY ROUNDING FOR PT SAFETY. CLWR.
[2019-03-29] MEDS ORDERED: CEFDINIR300 MG PO (11:55)
[2019-03-29] MEDS ORDERED: MUCINEX600 MG PO (12:01)
[2019-03-29] MEDS ORDERED: PROTONIX40 M1 PO (12:03)
[2019-03-29] MEDS ORDERED: MIRALAX17 GM PO (12:05)
[2019-03-29] MEDS ORDERED: PREDNISONE 10 M10 MG PO (12:07)
[2019-03-29 12:17] VITALS: BP 134/67
[2019-03-29] MEDS ORDERED: BREO ELLIPTA 11 EACH INH (12:30)
[2019-03-29] MEDS ORDERED: HYDROCODON-ACE1 EAC5 PO (12:32)
[2019-03-29] MEDS ORDERED: IPRAT-ALBUT 0.5-3 ML INH (12:35)
[2019-03-29] MEDS ORDERED: COMBIVENT INH (12:36)
[2019-03-29] MEDS ORDERED: ONDANSETRON HCL4 M2 PO (12:37)
[2019-03-29] MEDS ORDERED: NYSTATIN100000 UNI SW&SWALLOW (12:38)
[2019-03-29 12:39] VITALS: BP 134/67
[2019-03-29] MEDS ORDERED: TESSALON PERLE100 MG PO (12:39)
== END 2019-03-29 13:27 | disposition home or self-care (01) | DRG 177 ==
LOC: M.ERS 11:29 → M.2W 12:46 → M.TBA-ER 12:46 → M.2W 14:50
PROVIDERS: Personal Emergency Response Attendant; ADMIT Internal Medicine
DX: J15.6 Pneumonia due to other Gram-negative bacteria (principal); J96.21 Acute and chronic respiratory failure with hypoxia; J44.0 Chronic obstructive pulmonary disease with (acute) lower respiratory infection; J44.1 Chronic obstructive pulmonary disease with (acute) exacerbation; M19.90 Unspecified osteoarthritis, unspecified site; M81.0 Age-related osteoporosis without current pathological fracture; J20.9 Acute bronchitis, unspecified; F41.9 Anxiety disorder, unspecified; B37.9 Candidiasis, unspecified; Z88.8 Allergy status to other drugs, medicaments and biological substances; Z88.0 Allergy status to penicillin; Z79.899 Other long term (current) drug therapy; Z90.49 Acquired absence of other specified parts of digestive tract; Z98.49 Cataract extraction status, unspecified eye; Z87.891 Personal history of nicotine dependence

== ENCOUNTER 2019-12-17 13:35 | Emergency (ER) | payer MEDICARE ==
[~2019-12-17] VITALS: Ht 152.4 cm; Wt 53.5 kg
[~2019-12-17 13:35] MED LIST changes: +CEFDINIR300 MG PO; +DOXYCYCLINE 10100 MG PO; +HYDROCODON-ACE1 EAC5 PO; +IPRAT-ALBUT 0.5-3 ML INH; +MUCINEX600 MG PO; +NYSTATIN100000 UNI SW&SWALLOW; +ONDANSETRON HCL4 M2 PO; +TESSALON PERLE100 MG PO
[2019-12-17 14:18] LABS: INFLUENZA A ANTIGEN Negative (Negative); INFLUENZA B ANTIGEN Negative (Negative)
[2019-12-17] MEDS ORDERED: BACTRIM DS TAB1 EAC1 PO ×2 (14:29→14:30)
[2019-12-17] MEDS ORDERED: PREDNISONE 10 M10 MG PO ×2 (14:38→15:02)
[2019-12-17 15:03] VITALS: BP 142/90
== END 2019-12-17 15:04 | disposition home or self-care (01) ==
LOC: M.ERS 13:35
PROVIDERS: Nurse Practitioner Family
DX: J44.1 Chronic obstructive pulmonary disease with (acute) exacerbation (principal); N89.8 Other specified noninflammatory disorders of vagina; J44.9 Chronic obstructive pulmonary disease, unspecified; M19.90 Unspecified osteoarthritis, unspecified site; M81.0 Age-related osteoporosis without current pathological fracture; Z90.49 Acquired absence of other specified parts of digestive tract; Z87.891 Personal history of nicotine dependence; Z88.0 Allergy status to penicillin; Z88.1 Allergy status to other antibiotic agents; Z88.8 Allergy status to other drugs, medicaments and biological substances

== ENCOUNTER 2020-05-07 16:11 | Inpatient (IN) | payer MEDICARE ==
[~2020-05-07] VITALS: Ht 152.4 cm; Wt 57.2 kg
[~2020-05-07 16:11] MED LIST changes: +BACTRIM DS TAB1 EAC1 PO
[2020-05-07 16:25] VITALS: BP 152/91
[2020-05-07 17:09] LABS: ABSOLUTE BASOPHILS 0.1 thou/uL (0.0-0.2); ABSOLUTE EOSINOPHILS 0.6 thou/uL (0.0-0.7); ABSOLUTE LYMPHOCYTES 1.4 thou/uL (0.8-5.3); ABSOLUTE MONOCYTES 0.6 thou/uL (0.0-1.2); ABSOLUTE NEUTROPHILS 6.4 thou/uL (1.6-8.1); BASOPHILS 1.1 %; EOSINOPHILS 6.8 %; HEMATOCRIT 36.7 % (37.0-47.0); HEMOGLOBIN 12.8 gm/dL (12.0-15.0); LYMPHOCYTES 15.2 %; MCH 30.2 pg (26.0-34.0); MCHC 34.8 g/dL (28.0-37.0); MCV 86.8 fL (80.0-100.0); MONOCYTES 6.5 %; MPV 6.5 fl. (7.2-11.1); NUCLEATED RBCS 0 /100WBC; PLATELET COUNT* 277 thou/uL (150-400); POLYS 70.4 %; RBC 4.23 mil/uL (4.20-5.00); RDW-CV 14.4 % (10.5-14.5); WBC 9.1 thou/uL (4.0-11.0)
[2020-05-07 17:18] LABS: APTT 27.5 Seconds (25.0-31.3); CALCIUM 8.5 mg/dL (8.5-10.1); CREATININE 0.9 mg/dL (0.6-1.3); POTASSIUM 3.9 mmol/L (3.5-5.1); PROTIME 10.2 Seconds (9.20-11.50)
[2020-05-07 17:22] LABS: TOTAL BILIRUBIN 0.3 mg/dL (<0.1-1.0); TOTAL PROTEIN 6.7 g/dL (6.4-8.2)
[2020-05-07 18:07] LABS: BE -3.9 mmol/L (-2 to +3); pH 7.427 (7.340-7.450)
[2020-05-07 20:35] VITALS: BP 152/84
[2020-05-07 20:43] VITALS: BP 138/79
--- NOTE | 2020-05-07 22:48 | NUR ---
ASSUMED CARE OF PT FROM THE ER AT 2044. PT IS ALERT AND ORIENTED. VSS. PERRLA. NO COMPLAINTS OF PAIN. STEADY GAIT. PT IS IN SINUS RYTHM ON THE TELEMETRY. PT IS RESTING COMFORTABLY IN BED. RESPIRATIONS ARE EVEN AND NONLABORED. WILL CONTINUE TO MONITOR PT.
[2020-05-08] VITALS: BP 137/70; BP 167/68
[2020-05-08 04:00] VITALS: BP 118/75; BP 153/61
[2020-05-08 08:00] VITALS: BP 137/89
--- NOTE | 2020-05-08 09:08 | EKG ---
[place] [address] ELECTROCARDIOGRAM REPORT Name: MUSANAIMA Ugo Room: [address] ADM IN .R.#: [id number] Admission: 05/07/20 Attend Phys: Dinesh winn Sa Discharge: Date of : 56 Date of Service: 05/07/20 1705 Report #: [id number] THIS REPORT FOR: //name// [facility] ED Test Date: 2020-05-07 Test Time: 17:05:23 Pat Name: NAIMA FREGOSO Department: Room: [facility] Gender: F Ice Cream Maker: OLIVERIO : 1960 Requested By: Vick Diego Order Number: [id number] MD: Juan Montano Measurements Intervals [place] Rate: 99 P: 57 NV: 137 QRS: 32 QRSD: 96 T: 45 QT: 359 QTc: 461 Interpretive Statements Sinus rhythm Compared to ECG 03/25/2019 11:58:03 T-wave abnormality no longer present Electronically Signed On 05-08-2020 9:07:27 CDT by Juan Montano [email or web address] <ELECTRONICALLY SIGNED> By: Juan Montano MD, [facility] 05/08/20 0907 1705 1705 Juan Montano MD, [facility] /EPI
[2020-05-08 11:57] VITALS: BP 130/71
--- NOTE | 2020-05-08 14:22 | NUR ---
CM spoke with Pt via phone. Covid pending. Pt resides at home with her S/O. Independent. Pt has neb. Hx of HH. Hx of skilled at [facility]. Per , anticipate dc in 3-4 days. Following.
[2020-05-08] MEDS ORDERED: SINGULAIR 10 MG10 M1 PO (15:57)
[2020-05-08 17:27] VITALS: BP 138/90
[2020-05-08 20:00] VITALS: BP 119/62
--- NOTE | 2020-05-08 20:03 | NUR ---
RECEIVED REPORT FROM BIPIN RIVERA. ASSUMED CARE OF PT AROUND 0715. PT A&O X4. AM ASSESSMENT AND VITALS COMPLETED CHARTED. CORPORATE HUMAN RESOURCES MANAGER IN PLACE CHARTED. PT DENIED PAIN THIS SHIFT. PT CONTINUED TO FEEL SOA THIS SHIFT, WANTS HER BREATHING TREATMENTS. COVID TEST STILL PENDING. MEDS PER EMAR. PT TALKED WITH FAMILY MULTIPLE TIMES THIS SHIFT VIA CELL PHONE. PT UP AD CINDY. PT TALKED WITH DR PITTS ON THE PHONE THIS AFTERNOON ABOUT SOME CONCERNS SHE HAD. PT CURRENTLY RESTING IN BED. CALL LIGHT IS WITHIN REACH. HOURLY ROUNDING PERFORMED. LOW FALL RISK PRECAUTIONS IN PLACE.
[2020-05-09] VITALS: BP 128/64
[2020-05-09] MEDS ORDERED: MIRALAX119 GM PO (00:40)
[2020-05-09 04:40] LABS: HEMATOCRIT 35.8 % (37.0-47.0); HEMOGLOBIN 12.1 gm/dL (12.0-15.0); MCH 29.5 pg (26.0-34.0); MCHC 33.8 g/dL (28.0-37.0); MCV 87.4 fL (80.0-100.0); MPV 6.4 fl. (7.2-11.1); RBC 4.1 mil/uL (4.20-5.00); WBC 12.3 thou/uL (4.0-11.0)
[2020-05-09 05:01] LABS: ALBUMIN 2.8 g/dL (3.4-5.0); CALCIUM 8.7 mg/dL (8.5-10.1); MAGNESIUM 2.2 mg/dL (1.8-2.4); PHOSPHORUS* 2.8 mg/dL (2.5-4.9); POTASSIUM 3.5 mmol/L (3.5-5.1)
[2020-05-09 08:00] VITALS: BP 152/88
[2020-05-09 12:00] VITALS: BP 120/79
--- NOTE | 2020-05-09 13:56 | NUR ---
Covid negative. Pulm consulted. DC 1-2 days
[2020-05-09 16:00] VITALS: BP 138/79
--- NOTE | 2020-05-09 18:46 | NUR ---
PATINET RESTIN IN BED. UP AD CINDY IN ROOM. AOX4. HOULRY ROUNDING COMPLETED FOR PATINET SAFETY.
[2020-05-09 20:00] VITALS: BP 146/79
[2020-05-10] VITALS: BP 136/71
--- NOTE | 2020-05-10 04:44 | NUR ---
PT A&O, VSS ON RA. MEDS GIVEN ORDERED. DENIED PAIN. UP AD CINDY. C/O SOA WITH ACTIVITIES. CURB MACHINE OPERATOR IN PLACE. SLEEP STUDY IN PROGRESS. WILL CONTINUE TO MONITOR.
[2020-05-10 08:00] VITALS: BP 125/85
[2020-05-10 08:42] LABS: CALCIUM 8.5 mg/dL (8.5-10.1); MAGNESIUM 2.2 mg/dL (1.8-2.4); POTASSIUM 3.3 mmol/L (3.5-5.1)
[2020-05-10 13:25] VITALS: BP 141/79
[2020-05-10 16:00] VITALS: BP 159/70
--- NOTE | 2020-05-10 16:13 | NUR ---
Per , anticipate dc tomorrow. Pulm continues to follow. Covid negative.
--- NOTE | 2020-05-10 17:58 | CON ---
[address] [address] CONSULTATION Name: NAIMA FREGOSO Room: [address] IN M.R.#: [id number] Admission: 05/07/20 Attend Phys: Dinesh Nixon Discharge: Date of : 56 Report #: [id number] THIS REPORT FOR: //name// cc: GERTRUDIS Correa family physician/PCP GERTRUDIS Correa family physician/PCP ~ THIS REPORT FOR: //name// CC: GERTRUDIS physician/PCP Dinesh Mcdonald DATE OF SERVICE: 05/09/2020 REQUESTING PHYSICIAN: Dinesh Mcdonald MD INDICATION FOR CONSULTATION: COPD exacerbation, recurrent. HISTORY OF PRESENT ILLNESS: A 59-year-old female, past medical history includes a history of COPD. The patient had been recommended oxygen while asleep. The patient, however, has on her own discontinued use of oxygen at night upon finding normal pulse oximetry during the day. The patient does have an extensive history of smoking. She discontinued in 2015. We in fact saw her in this hospital in 2015 and that time, she was positive for Pseudomonas species and also had a cavitary infiltrate. The patient had declined bronchoscopy; however, the cavitary infiltrate subsequently resolved with the use of antibiotics. More recently, the patient reports that she has had a significant increase in frequency of her COPD exacerbation and since January, she has received 3 or 4 courses of prednisone tapers. She has received cephalexin twice. She has also received doxycycline once. The patient again is admitted here with a COPD exacerbation and again reports that she had a significant increase in shortness of breath as well as cough. She has also been bringing up white sputum and does report that she had a nasal discharge and some sore throat as well. She had a fever recorded at 100 degrees Fahrenheit at home once as well. She does not report any increase in swelling of lower extremities. There is no calf pain. The patient, however, does report having had significant heartburn. She says that in addition to taking proton pump inhibitors, the patient also uses Pepcid on top to cope with reflux symptoms. She at times has been tachycardic and has at times had palpitations. She has had some chest pain with respiration and coughing. The patient has been afebrile since this admission. She was screened for COVID-19 and this was found to be negative on initial presentation. REVIEW OF SYSTEMS: A complete review of systems was performed and I did ask her 12 other questions for review of systems. The patient answered to all of the questions asked for review of systems as being negative with the exception that she has had sleep disturbances at times. She has felt [place] [address] CONSULTATION Name: NAIMA FREGOSO Room: [address] IN .R.#: [id number] Admission: 05/07/20 Attend Phys: Dinesh Nixon Discharge: Date of : 56 Report #: [id number] the day at times, although she does not doze off unintentionally. The rest of review of systems is negative. SHE DOES HAVE NASAL ALLERGIES AT TIMES THOUGH. PAST MEDICAL HISTORY: COPD, on oxygen while asleep long time; however, has not been using recently. Severe gastroesophageal reflux disease. She appears to have previously undiagnosed obstructive sleep apnea. Osteoarthritis, Graves' disease, ectopic . Cavitary infiltrate in lungs in 2016, resolved with antibiotics. Osteoporosis. Laparoscopic cholecystectomy, D and C had reported to have had precancerous cells many years ago. Cataract surgery. I do not have her previous pulmonary function tests available at this time. The patient did have an echocardiogram last year, which shows a left ventricular ejection fraction normal at 60-65%. There are some findings suggestive of possibly mild diastolic dysfunction. The tricuspid valve is normal to showing trace regurgitation. The right heart pressures are not reported to be elevated. SOCIAL HISTORY: There is an extensive history of smoking more than a pack a day for several decades. At one point, she was up to 3 packs a day. The patient discontinued smoking in 2016 and has not smoked since then. No known history of heavy alcohol use or illegal drug use. MEDICATIONS: Current medications list in [employer] reviewed. Home medications list also in [employer] reviewed. Recent use of prednisone tapers on several occasions as mentioned above. The patient also reports use of cephalexin and doxycycline. According to the records, the patient may have also received Bactrim recently. FAMILY HISTORY: There is no pertinent family history. PHYSICAL EXAMINATION: GENERAL: She is alert, awake and oriented, appears to be mildly short of breath at rest. VITAL SIGNS: She is on room air. She is maintaining pulse oximetry in the mid 90s on room air, has a pulse of 95, and a blood pressure of 120/79. She has a respiratory rate mildly elevated to around 20. She is afebrile with a temperature of 36.7. Body mass index is elevated to 24.7. HEENT: Head is normocephalic and atraumatic. Pupils are equal and reactive. There is no throat erythema. She has a fairly narrow airway. By Mallampati classification, airway is class 3; however, it is in fact much narrower than a typical class 3 airway. NECK: Does not show raised JVP, asymmetry, mass, or lymph nodes. CHEST: Symmetrical expansion on inspection and palpation. On auscultation, breath sounds are bilaterally equal. Breath sounds are diminished bilaterally though. Expirations are prolonged. I did not hear any added sounds. HEART: Regular. There is no murmur. ABDOMEN: Soft and nontender. EXTREMITIES: Lower extremities show no edema, [place] [address] CONSULTATION Name: NAIMA FREGOSO Room: [address] IN [facility]#: [id number] Admission: 05/07/20 Attend Phys: Dinesh Nixon Discharge: Date of : 56 Report #: [id number] SKIN: Dry and intact. NEUROLOGICAL: Moves all extremities bilaterally equally and spontaneously with no focal deficit identified. LABORATORY DATA: I reviewed the patient's CTA chest performed on admission and compared with the patient's previous imaging. In summary, there are no pulmonary emboli identified. There are radiopaque densities noted bilaterally at posterior lung valencia. I am not able to identify the same findings of the patient's previous CT of the abdomen and pelvis performed in 2018 and therefore these would be consistent with small bilateral patchy posterior infiltrates. The patient did have a cavitary infiltrate previously, which has now resolved. There is a lung nodule in the left lung, which appears to be slightly more prominent than the previous CAT scans. The patient's arterial blood gas, which is consistent with acute respiratory insufficiency with a mild metabolic acidosis, in [facility] reviewed. There is respiratory compensation. The patient's CBC as well as chemistries repeated twice since admission in [facility] reviewed. D-dimer was not elevated. There is a sputum culture sent yesterday, which is pending at this time. The patient's blood culture shows no growth so far. ASSESSMENT/PLAN: 1. Recurrent chronic obstructive pulmonary disease exacerbation. I agree with current therapy with nebulized bronchodilators as well as Solu-Medrol. If the patient improves, I will be inclined to cut back on Solu-Medrol dose tomorrow. I did adjust the frequency and timing of the nebulized bronchodilators. Further evaluation does appear to be indicated to evaluate why the patient has been having recurrent episodes of chronic obstructive pulmonary disease exacerbation since January. The patient does appear to have previously undiagnosed obstructive sleep apnea. This does appear to be playing a role. Adequate therapy for her reflux also does appear to be indicated. Also, the patient has previously had Pseudomonas in her sputum and evaluation for ongoing Pseudomonas infection does appear to be indicated as well. 2. Pulmonary infiltrates. Discussion regarding my review of the patient's CTA chest in comparison to the previous CTs is as above. I do feel that there are some bilateral pulmonary infiltrates posteriorly in the lower lung valencia. The patient is on Levaquin. I feel that this is appropriate therapy for now. We will follow up on the patient's culture results tomorrow and then we will adjust antibiotics accordingly. The question is as to whether the Levaquin dose should be increased. The patient is currently on 750 mg q.48 hours. Pharmacy has calculated her creatinine clearance to be 49.6, which is just below the threshold for decreasing Levaquin from daily to every other day. If we do continue with Levaquin as the only antibiotic tomorrow, then I may be inclined to increase the frequency of Levaquin administration. 3. Severe gastroesophageal reflux disease. I increased her Protonix to b.i.d. 4. Hypersomnia. I feel that the patient's symptoms are consistent with obstructive sleep apnea. She also has a fairly narrow airway. We will plan to [address] [address] CONSULTATION Name: NAIMA FREGOSO Room: [address] IN Bj.#: [id number] Admission: 05/07/20 Attend Phys: Dinesh owen zay Ma Discharge: Date of : 56 Report #: [id number] do a nocturnal pulse oximetry during this admission. I will also recommend that she has a sleep study performed as an outpatient. Correction of her obstructive sleep apnea would likely result both in improvement of her chronic obstructive pulmonary disease symptoms as well as reflux. Weight loss is also strongly recommended. 5. Lung nodule. As discussed above, there is a nodule in her left lung. This is seen on her previous CAT scans as well. It is questionable as to whether there is a small amount of calcium present in this nodule. In summary, my impression is that this is a benign lung nodule; however, considering that this is somewhat more prominent on the new CT, I would favor performing another CAT scan in about 6 months to a year to verify stability of this finding. The likelihood, however, is that the change in size in this nodule is due to technique. 6. Deep venous thrombosis prophylaxis. Lovenox. 7. Clostridium difficile prophylaxis. She has had multiple antibiotics. We will start with Floraor. Thanks for this consultation. <ELECTRONICALLY SIGNED> By: Brendan Gaona MD 05/10/20 1758 [id number] [id number] Gaona MD /nt
--- NOTE | 2020-05-10 18:59 | NUR ---
PATINET RESTING IN BED. VSS AND PATINET IN NO APPARNET SIGNS POF DISTRESS. UP AD CINDY IN ROOM. HOURLY ROUNDING COMPLETED FOR PATINET SAFETY.
[2020-05-10 19:34] VITALS: BP 139/79
[2020-05-11] VITALS: BP 143/84
[2020-05-11 04:00] VITALS: BP 153/80
--- NOTE | 2020-05-11 04:18 | NUR ---
PT A&OX4, ON ROOM AIR, VSS, UP AD CINDY, SINUS TACH ON MONITOR. PT C/O CONSTIPATION, NO OTHER COMPLAINTS THIS SHIFT. WILL CONTINUE WITH PLAN OF CARE.
[2020-05-11 07:55] VITALS: BP 152/81
[2020-05-11] MEDS ORDERED: PREDNISONE 10 M10 MG PO (10:31)
[2020-05-11] MEDS ORDERED: MUCINEX600 MG PO (10:31)
[2020-05-11 12:00] VITALS: BP 146/79
[2020-05-11 16:00] VITALS: BP 160/79
--- NOTE | 2020-05-11 16:48 | NUR ---
PATIENT RESTING IN BED. UP AD CINDY IN ROOM AND HALLWAYS. ID CONSULTED TODAY. VSS AND PATINET IN NOAAPRENT SIGNS OF DISTRESS. MS STATUS
[2020-05-11 20:00] VITALS: BP 139/76
--- NOTE | 2020-05-11 23:18 | NUR ---
ASSUMED PT CARE AT APPROX 1930. PT IS AWAKE AND ORIENTED X4. PT IS NOT IN ANY DISTRESS, DENIES PAIN/DISCOMFORT. PT IS TRANSFERRED TO ROOM 308 AT APPROX 2130 PER BED AFTER REPORT GIVEN TO ISAC RIVERA.
[2020-05-12 00:30] VITALS: BP 146/80
[2020-05-12 05:37] LABS: GLYCOHEMOGLOBIN (HGB A1C) 6.1 % (4.8-5.6)
--- NOTE | 2020-05-12 06:34 | NUR ---
Transfer from last evening at 2130. She is up independently in the room. IV was saline locked. She has not had any complaints.
--- NOTE | 2020-05-12 08:27 | CON ---
[address] [address] CONSULTATION Name: ZENOBIAALFONSOA Ugo Room: [address] IN M.R.#: [id number] Admission: 05/07/20 Attend Phys: Dinesh Nixon Discharge: Date of : 56 Report #: [id number] THIS REPORT FOR: //name// cc: GERTRUDIS Correa family physician/PCP GERTRUDIS - Madeline family physician/PCP ~ THIS REPORT FOR: //name// CC: GERTRUDIS physician/PCP Dinesh Mcdonald DATE OF SERVICE: 05/11/2020 INFECTIOUS DISEASE CONSULTATION ATTENDING PHYSICIAN: Walter Barone DO REASON FOR EVALUATION: COPD, complicated by exacerbation now. Culture confirmed Rothia isolated in the sputum. Recommendation for antibiotic therapy. HISTORY OF PRESENT ILLNESS: Chart reviewed, patient examined. This is a 59-year-old known to myself, has fairly extensive medical history, heavy smoker at one point. She has underlying COPD at frequently primarily in the springtime, has associated respiratory tract signs and symptoms, sometimes attributable to a complicating infection. She had been ill since January and had been followed as an outpatient by Pulmonary, treated with several courses of antibiotics. Did actually require hospitalization due to what she describes as palpitations. She had been also on a steroid taper. She denies any particular exposure history, was evaluated in the Emergency Room, was found to be coronavirus testing negative. Chest x-ray showed some chronic changes. CT showed no evidence of pulmonary emboli. She has been started empirically on levofloxacin. 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 She is in mild respiratory distress at this point. She has got overall less cough than admission. She is maintained on room air. ALLERGIES: METRONIDAZOLE SHE DESCRIBED URTICARIA; BACTRIM, URTICARIA; PENICILLIN, DESCRIBED URTICARIA AGE 10 OR 11. CURRENT MEDICATIONS: Include lorazepam, levothyroxine, pantoprazole, saccharomyces, ipratropium and albuterol inhaler, budesonide, montelukast, fluticasone, methylprednisolone, levofloxacin 750 daily. PAST MEDICAL HISTORY: As described as above noted COPD, history of Graves' disease, arthritis, history of osteoporosis, anxiety, depression, PTSD. SOCIAL HISTORY: Previous heavy smoker. No illicit [place] [address] CONSULTATION Name: NAIMA FREGOSO Room: [address]#: [id number] Admission: 05/07/20 Attend Phys: Dinesh winn [place] Discharge: Date of : 56 Report #: [id number] FAMILY HISTORY: Noncontributory. REVIEW OF SYSTEMS: Otherwise, unremarkable. Denies any recent weight loss. No gastrointestinal related complaints with the exception of some constipation. PHYSICAL EXAMINATION: GENERAL: She appears somewhat chronically ill, undernourished, is pleasant, cooperative. She is animated. VITAL SIGNS: Temperature 98.0, pulse 107, respirations 15, blood pressure 152/81. SKIN: Warm, dry, no rashes. HEENT: Normocephalic. Extraocular muscles intact. NECK: Supple. LUNGS: Scattered coarse breath sounds, somewhat diminished overall. HEART: Borderline tachycardic, irregular. I do not appreciate a murmur. ABDOMEN: Soft, nontender, nondistended. EXTREMITIES: No cyanosis. GENITOURINARY AND RECTAL: Deferred. LABORATORY DATA: Sputum cultures described above. Did have moderate Gram-positive cocci in clusters as well as Gram-positive cocci in chains. Prealbumin of 22.7. Electrolytes: Sodium 138, potassium 3.3, chloride 103, bicarbonate 21, anion gap of 14, BUN and creatinine 10 and 1.0, glucose of 175. Chest x-ray and CT as described above. ASSESSMENT: Chronic lung disease with underlying exacerbation. I suspect a component of pneumonitis, Rothia is not a common isolate, although it is reasonable to treat. We use combination therapy pending susceptibilities. In terms of the source, she does have dentures. We will check sinus CT, also check hemoglobin A1c on her therapy with vancomycin as well as rifampin in combination. Monitor expectantly. <ELECTRONICALLY SIGNED> By: Lyle Arriola MD 05/12/20 0827 [id number] Arriola MD /nt
[2020-05-12 08:30] VITALS: BP 153/89
--- NOTE | 2020-05-12 16:46 | NUR ---
ALERT AND ORIENTED X4. UP AD CINDY IN ROOM. DENIES NEED FOR PAIN MEDICATION. CONTINUES ON IV ANTIBIODIC WITH NO ADVERSE REACTIONS OR SIDE EFFECTS. O2 SAT REMAINS IN MID 90'S ON ROOM AIR. LUNG SOUNDS DIMINISHED. USES CALL LIGHT WHEN NEEDING ASSIST. CONTINUES TO RECEIVE BREATHING TREATMENTS.
[2020-05-12 17:06] VITALS: BP 141/79
[2020-05-12 21:00] VITALS: BP 126/72
--- NOTE | 2020-05-13 05:15 | NUR ---
ASSUMED CARES AT 1920. ALERT AND ORIENTED. PLEASANT. DENIED ANY PAIN. UP AD CINDY. DID HAVE BM. RT STARTED OVERNIGHT PULSE OXIMETRY. PRODUCTIVE COUGH. IS HOPING TO GO HOME SOON. SALINE LOCK TO RIGHT FA. NO ISSUES OVERNIGHT.
[2020-05-13 07:58] VITALS: BP 154/94
[2020-05-13] MEDS ORDERED: FLORASTOR250 MG PO (13:07)
[2020-05-13] MEDS ORDERED: PREDNISONE 10 M10 MG PO (13:07)
[2020-05-13] MEDS ORDERED: LEVAQUIN 750 M750 MG PO (13:07)
[2020-05-13] MEDS ORDERED: FLUCONAZOLE 10100 MG PO (13:07)
[2020-05-13 13:39] VITALS: BP 154/94
[2020-05-13 15:08] VITALS: BP 154/94
--- NOTE | 2020-05-13 15:09 | NUR ---
PT DISCHARGED HOME. COPY OF DISCHARGE PAPERWORK WITH PRESCRIPTIONSW TO PT. PT VERBALIZED UNDERSTANDING. IV ACCESS REMOVED. PT TRANSPORTED BY WHEELCHAIR TO PRIVATE VEHICHLE WHERE HER SPOUSE WAS WAITING.
== END 2020-05-13 15:11 | disposition home or self-care (01) | DRG 871 ==
LOC: M.ERS 16:11 → M.2W 18:17 → M.TBA-ER 18:17 → M.2W 20:17 → M.3W 05-11 21:33
PROVIDERS: Emergency Medicine; Internal Medicine Critical Care Medicine; Specialist; ADMIT Family Medicine; ATTEND Family Medicine
DX: A41.89 Other specified sepsis (principal); J15.8 Pneumonia due to other specified bacteria; J96.21 Acute and chronic respiratory failure with hypoxia; E44.1 Mild protein-calorie malnutrition; J40 Bronchitis, not specified as acute or chronic; K21.9 Gastro-esophageal reflux disease without esophagitis; E03.9 Hypothyroidism, unspecified; J30.9 Allergic rhinitis, unspecified; G47.33 Obstructive sleep apnea (adult) (pediatric); B37.9 Candidiasis, unspecified; J43.9 Emphysema, unspecified; E05.00 Thyrotoxicosis with diffuse goiter without thyrotoxic crisis or storm; M19.90 Unspecified osteoarthritis, unspecified site; M81.0 Age-related osteoporosis without current pathological fracture; R73.9 Hyperglycemia, unspecified; R91.1 Solitary pulmonary nodule; G47.10 Hypersomnia, unspecified; T38.0X5A Adverse effect of glucocorticoids and synthetic analogues, initial encounter; Z20.828 Contact with and (suspected) exposure to other viral communicable diseases; Y92.89 Other specified places as the place of occurrence of the external cause; Z90.49 Acquired absence of other specified parts of digestive tract; Z98.49 Cataract extraction status, unspecified eye; Z79.899 Other long term (current) drug therapy; Z88.1 Allergy status to other antibiotic agents; Z88.0 Allergy status to penicillin; Z88.2 Allergy status to sulfonamides; Z88.8 Allergy status to other drugs, medicaments and biological substances; Z87.891 Personal history of nicotine dependence; Z68.24 Body mass index [BMI] 24.0-24.9, adult

== ENCOUNTER → 2020-05-31 | Outpatient (CLI) | payer MEDICARE ==
[~2020-05-31] MED LIST changes: +FLORASTOR250 MG PO; +FLUCONAZOLE 10100 MG PO; +MIRALAX119 GM PO
== END ==
LOC: M.RAD 15:08
DX: J43.9 Emphysema, unspecified (principal)

== ENCOUNTER → 2020-06-06 | Outpatient (CLI) | payer MEDICARE | LOC: M.LAB 13:14 | PROVIDERS: ATTEND Specialist | DX: J18.9 Pneumonia, unspecified organism (principal) ==

== ENCOUNTER → 2020-07-31 | Outpatient (CLI) | payer MEDICARE | LOC: M.RAD 13:42 | PROVIDERS: ATTEND Specialist | DX: J44.9 Chronic obstructive pulmonary disease, unspecified (principal); Z87.01 Personal history of pneumonia (recurrent) ==

== ENCOUNTER 2020-12-05 03:30 | Emergency (ER) | payer MEDICARE ==
[~2020-12-05] VITALS: Ht 154.9 cm; Wt 53.5 kg
[2020-12-05 04:14] LABS: ABSOLUTE BASOPHILS 0.1 thou/uL (0.0-0.2); ABSOLUTE EOSINOPHILS 0.3 thou/uL (0.0-0.7); ABSOLUTE LYMPHOCYTES 1.8 thou/uL (0.8-5.3); ABSOLUTE MONOCYTES 0.4 thou/uL (0.0-1.2); BASOPHILS 1.4 %; EOSINOPHILS 5.3 %; HEMATOCRIT 37.4 % (37.0-47.0); HEMOGLOBIN 12.3 gm/dL (12.0-15.0); LYMPHOCYTES 32.6 %; MCH 28.9 pg (26.0-34.0); MCHC 32.9 g/dL (28.0-37.0); MCV 87.7 fL (80.0-100.0); MONOCYTES 7.7 %; MPV 5.7 fl. (7.2-11.1); NUCLEATED RBCS 0 /100WBC; PLATELET COUNT* 326 thou/uL (150-400); RBC 4.26 mil/uL (4.20-5.00); WBC 5.6 thou/uL (4.0-11.0)
[2020-12-05 04:34] LABS: CALCIUM 8.4 mg/dL (8.5-10.1); CREATININE 0.8 mg/dL (0.6-1.3); POTASSIUM 3.3 mmol/L (3.5-5.1)
[2020-12-05 04:46] LABS: ALBUMIN 3.1 g/dL (3.4-5.0); TOTAL BILIRUBIN 0.2 mg/dL (<0.1-1.0); TOTAL PROTEIN 5.9 g/dL (6.4-8.2)
[2020-12-05 04:48] LABS: URINE BILIRUBIN NEGATIVE (Negative); URINE BLOOD NEGATIVE (Negative); URINE COLOR YELLOW; URINE GLUCOSE-RANDOM NEGATIVE (Negative); URINE KETONES NEGATIVE (Negative); URINE LEUKOCYTES-REFLEX 1+ (Negative); URINE NITRITE-REFLEX NEGATIVE (Negative); URINE PROTEIN NEGATIVE (Negative); URINE UROBILINOGEN 0.2 E.U./dl (0.2-1.0)
[2020-12-05 04:50] LABS: URINE CLARITY SL HAZY
[2020-12-05 05:05] LABS: APTT 25.1 Seconds (25.0-31.3); PROTIME 10.3 Seconds (9.20-11.50)
[2020-12-05 05:19] LABS: BACTERIA-REFLEX 1-9 Few /HPF (None Seen); CASTS None Seen /LPF (None Seen); CRYSTALS None Seen /LPF (None Seen); MUCUS 0-3 Light strn/LPF (None Seen); SQUAMOUS 0-3 Few /LPF (0-3); URINE RBC 0-2 Rare /HPF (0-2); URINE WBC-REFLEX 6-15 Few /HPF (0-5)
[2020-12-05] MEDS ORDERED: HYDROCODON-ACE1 EAC7 PO (08:31)
[2020-12-05] MEDS ORDERED: ACYCLOVIR 800800 MG PO (08:31)
[2020-12-05] MEDS ORDERED: DOXYCYCLINE 10100 M2 PO (08:31)
[2020-12-05] MEDS ORDERED: PREDNISONE 10 M10 M1 PO (08:31)
[2020-12-05 09:04] VITALS: BP 139/82
--- NOTE | 2020-12-05 13:39 | EKG ---
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: [place] : 1960 Requested By: Skyla Concepcion Order Number: [id number] MD: Johnathon Red Measurements Intervals Orrick Rate: 95 P: 66 OR: 135 QRS: 27 QRSD: 94 T: 33 QT: 386 QTc: 486 Interpretive Statements Sinus rhythm Compared to ECG 05/07/2020 17:05:23 No significant changes Electronically Signed On 12-05-2020 13:39:30 DOUBLE CUT SAWYER by Johnathon Red [email or web address] <ELECTRONICALLY SIGNED> By: Johnathon Red MD, [facility] 12/05/20 1339 0334 0334 Johnathon Red MD, [facility] /EPI
== END 2020-12-05 09:05 | disposition still patient (30) ==
LOC: M.ERS 03:30
PROVIDERS: Personal Emergency Response Attendant
DX: N39.0 Urinary tract infection, site not specified (principal); B02.9 Zoster without complications; R07.9 Chest pain, unspecified; J44.9 Chronic obstructive pulmonary disease, unspecified; Z79.899 Other long term (current) drug therapy; Z87.891 Personal history of nicotine dependence; Z88.0 Allergy status to penicillin; Z88.2 Allergy status to sulfonamides; Z88.8 Allergy status to other drugs, medicaments and biological substances; Z20.828 Contact with and (suspected) exposure to other viral communicable diseases

== ENCOUNTER 2021-01-01 06:19 | Emergency (ER) | payer MEDICARE ==
[~2021-01-01] VITALS: Ht 154.9 cm; Wt 54.4 kg
[~2021-01-01 06:19] MED LIST changes: +ACYCLOVIR 800800 MG PO; +DOXYCYCLINE 10100 M2 PO; +HYDROCODON-ACE1 EAC7 PO; +PREDNISONE 10 M10 M1 PO
[2021-01-01] MEDS ORDERED: PREDNISONE 20 M20 M1 PO (06:48)
[2021-01-01 06:55] VITALS: BP 136/96
== END 2021-01-01 06:55 | disposition home or self-care (01) ==
LOC: M.ERS 06:19
DX: L53.9 Erythematous condition, unspecified (principal); T78.40XA Allergy, unspecified, initial encounter; J44.9 Chronic obstructive pulmonary disease, unspecified; M19.90 Unspecified osteoarthritis, unspecified site; Z88.0 Allergy status to penicillin; Z88.1 Allergy status to other antibiotic agents; Z88.2 Allergy status to sulfonamides; Z88.8 Allergy status to other drugs, medicaments and biological substances; Z87.891 Personal history of nicotine dependence; Z90.49 Acquired absence of other specified parts of digestive tract; X58.XXXA Exposure to other specified factors, initial encounter

== ENCOUNTER 2021-01-19 16:09 | Emergency (ER) | payer MEDICARE ==
[~2021-01-19] VITALS: Ht 154.9 cm; Wt 54.4 kg
[2021-01-19 17:11] VITALS: BP 155/78
== END 2021-01-19 17:12 | disposition home or self-care (01) ==
LOC: M.ERS 16:09
DX: F41.0 Panic disorder [episodic paroxysmal anxiety] (principal); J44.9 Chronic obstructive pulmonary disease, unspecified; M19.90 Unspecified osteoarthritis, unspecified site; Z88.0 Allergy status to penicillin; Z88.1 Allergy status to other antibiotic agents; Z88.2 Allergy status to sulfonamides; Z88.8 Allergy status to other drugs, medicaments and biological substances; Z90.49 Acquired absence of other specified parts of digestive tract